=== PATIENT | female | born 1995 | race Caucasian/White ===

== ENCOUNTER 2017-02-22 21:05 | Outpatient (CLI) | payer MEDICAID ==
[~2017-02-22] VITALS: Ht 170.2 cm; Wt 71.0 kg
== END 2017-02-22 22:30 | disposition home or self-care (01) ==
LOC: LDOP 21:05
PROVIDERS: ATTEND Obstetrics & Gynecology
DX: O26.893 Other specified pregnancy related conditions, third trimester (principal); R10.9 Unspecified abdominal pain; Z3A.39 39 weeks gestation of pregnancy
CPT/HCPCS: 59025; 99211; G0463

== ENCOUNTER 2017-02-27 02:26 | Inpatient (IN) | payer MEDICAID ==
[~2017-02-27] VITALS: Ht 170.2 cm; Wt 73.0 kg
[2017-02-27] MEDS ORDERED: NEWBORN KIT ONE (02:52)
[2017-02-27] MEDS ORDERED: OXYTOCIN 30U/ 0.9% NaCL 500ML 500 ML ONE ×2 (02:52→09:54)
[2017-02-27] MEDS ORDERED: OXYTOCIN 30U/ 0.9% NaCL 500ML 500 ML IV PRN (02:55)
[2017-02-27] MEDS ORDERED: OXYTOCIN 30U/ 0.9% NaCL 500ML 500 ML IV ONE (02:55)
[2017-02-27] MEDS ORDERED: D5%-LACTATED RINGERS 1,000 ML IV SCH (02:55)
[2017-02-27 03:00] VITALS: BP 99/61
[2017-02-27] MEDS ORDERED: FENTANYL PF 100 MCG/2ML IV PRN (03:00)
[2017-02-27] MEDS ORDERED: METOCLOPRAMIDE 5 MG/ML, 2ML IVPush PRN (03:00)
[2017-02-27] MEDS ORDERED: TERBUTALINE 1 MG/ML, 1ML SQ PRN (03:00)
[2017-02-27] MEDS ORDERED: FENTANYL PF 100 MCG/2ML IVPush PRN (03:00)
[2017-02-27] MEDS ORDERED: SODIUM CITRATE/CITRIC ACID 30 ML UDC PO PRN (03:00)
[2017-02-27] MEDS ORDERED: ONDANSETRON 2MG/ML, 2ML IVPush PRN (03:00)
[2017-02-27 03:24] LABS: HEMOGLOBIN 13.2 g/dL (11.7-16.4)
[2017-02-27] MEDS ORDERED: FENTANYL PF 100 MCG/2ML ONE (03:26)
[2017-02-27] MEDS: LACTATED RINGERS 1,000 ML IV SCH ×2 (03:30→04:32)
[2017-02-27] MEDS ORDERED: FENTANYL/BUPIV./NS/PF 250 ML EPIDCONT ONE (04:02)
[2017-02-27] MEDS ORDERED: METHYLERGONOVINE 0.2 MG/ML IM PRN (08:30)
[2017-02-27] MEDS ORDERED: RHOGAM FROM BLOOD BANK 1 NOTE EA IM/IV ONE (08:30)
[2017-02-27] MEDS ORDERED: ONDANSETRON 2MG/ML, 2ML IV PRN (08:30)
[2017-02-27] MEDS ORDERED: OXYcodone/APAP 5/325MG TABLET PO PRN (08:30)
[2017-02-27] MEDS ORDERED: MISOPROSTOL 200 MCG TABLET PR PRN (08:30)
[2017-02-27] MEDS ORDERED: MEASLES,MUMPS&RUBELLA VACC/PF 0.5 ML SQ-VACC PRN (08:30)
[2017-02-27] MEDS ORDERED: ACETAMINOPHEN 325 MG TABLET PO PRN (08:30)
[2017-02-27] MEDS ORDERED: DIPH,PERTUSS(ACELL),TET VAC/PF NC IM-VACC PRN (08:30)
[2017-02-27] MEDS ORDERED: BISACODYL 10 MG SUPP PR PRN (08:30)
[2017-02-27] MEDS ORDERED: CARBOPROST TROMETHAMINE 250 MCG/ML, 1ML IM PRN (08:30)
[2017-02-27] MEDS: PRENATAL VIT/IRON/FA 1 EACH TABLET PO SCH (09:00)
[2017-02-27] MEDS: OXYTOCIN 30U/ 0.9% NaCL 500ML 500 ML IV SCH ×2 (09:45→18:16)
[2017-02-27 10:00] VITALS: BP 106/67
[2017-02-27] MEDS: IBUPROFEN 600 MG TABLET PO PRN ×2 (11:31→21:08)
[2017-02-27] MEDS: OXYcodone/APAP 5/325MG TABLET PO PRN ×2 (12:26→22:42)
[2017-02-27 16:15] VITALS: BP 103/63
[2017-02-27 21:30] VITALS: BP 113/74
[2017-02-28 01:30] VITALS: BP 108/68
[2017-02-28] MEDS: OXYTOCIN 30U/ 0.9% NaCL 500ML 500 ML IV SCH ×2 (04:16→14:16)
[2017-02-28 05:25] VITALS: BP 101/61
[2017-02-28] MEDS: IBUPROFEN 600 MG TABLET PO PRN ×3 (05:25→21:11)
[2017-02-28 07:20] VITALS: BP 103/68
[2017-02-28] MEDS: PRENATAL VIT/IRON/FA 1 EACH TABLET PO SCH (07:48)
[2017-02-28] MEDS: DOCUSATE 100 MG CAPSULE PO PRN ×2 (07:48→19:17)
[2017-02-28] MEDS: OXYcodone/APAP 5/325MG TABLET PO PRN ×3 (09:50→19:17)
[2017-02-28] MEDS ORDERED: OXYC-302 PO (09:57)
[2017-02-28 20:00] VITALS: BP 102/49
[2017-03-01] MEDS: OXYcodone/APAP 5/325MG TABLET PO PRN ×3 (00:10→12:43)
[2017-03-01] MEDS: OXYTOCIN 30U/ 0.9% NaCL 500ML 500 ML IV SCH (00:16)
[2017-03-01] MEDS: IBUPROFEN 600 MG TABLET PO PRN ×2 (04:41→12:43)
[2017-03-01 08:00] VITALS: BP 97/58
[2017-03-01] MEDS: DOCUSATE 100 MG CAPSULE PO PRN (08:10)
[2017-03-01] MEDS: PRENATAL VIT/IRON/FA 1 EACH TABLET PO SCH (08:10)
== END 2017-03-01 16:45 | disposition home or self-care (01) | DRG 775 ==
LOC: LDOP 02:26 → LDIP 02:56 → 2NW 10:01
PROVIDERS: ADMIT Obstetrics & Gynecology; ATTEND Obstetrics & Gynecology
PROC: 10E0XZZ Delivery of Products of Conception, External Approach (ICD-10-PCS; principal; 2017-02-27)
PROC: 3E0S3CZ (ICD-10-PCS; 2017-02-27)
PROC: 00HU33Z Insertion of Infusion Device into Spinal Canal, Percutaneous Approach (ICD-10-PCS; 2017-02-27)
PROC: 30233S1 Transfusion of Nonautologous Globulin into Peripheral Vein, Percutaneous Approach (ICD-10-PCS; 2017-02-28)
DX: O80 Encounter for full-term uncomplicated delivery (principal); Z37.0 Single live birth; Z3A.40 40 weeks gestation of pregnancy; Z23 Encounter for immunization
CPT/HCPCS: 36415; 85025; 85461; 86850; 86900; J2790; J3010; J2590; J7120

== ENCOUNTER 2019-03-11 00:21 | Emergency (ER) | payer BC, MEDICAID ==
[~2019-03-11] VITALS: Ht 170.2 cm; Wt 75.0 kg
[~2019-03-11 00:21] MED LIST: OXYC-302 PO
--- NOTE | 2019-03-11 00:55 | NUR ---
PT TO US.
[2019-03-11 01:03] LABS: BASOPHILS # (AUTO) 0.09 x10^3/uL (0-0.1); BASOPHILS % (AUTO) 1 % (0-1); EOSINOPHILS # (AUTO) 0.23 x10^3/uL (0-0.4); EOSINOPHILS % (AUTO) 2 % (1-7); LYMPHOCYTES # (AUTO) 2.11 x10^3/uL (1-3.4); LYMPHOCYTES % (AUTO) 18 % (22-44); MD NO; MEAN CORPUSCULAR HEMOGLOBIN 33.4 pg (27.0-34.8); MEAN CORPUSCULAR HGB CONC 34.8 g/dL (32.4-35.8); MEAN CORPUSCULAR VOLUME 95.9 fL (80-100); MEAN PLATELET VOLUME 7.5 fL (7.4-10.4); MONOCYTES # (AUTO) 0.74 x10^3/uL (0.2-0.8); MONOCYTES % (AUTO) 6 % (2-9); NEUTROPHILS % (AUTO) 74 % (42-75); PLATELET COUNT 220 x10^3/uL (130-400); RED BLOOD COUNT 4.23 x10^6/uL (3.82-5.3); RED CELL DISTRIBUTION WIDTH 12.4 % (9.6-15.2)
[2019-03-11 01:11] LABS: ALBUMIN 4.2 g/dL (3.4-5.0); ANION GAP 6 mmol/L (5-15); CALCIUM 8.1 mg/dL (8.5-10.1); CHLORIDE 110 mmol/L (98-107); CREATININE 0.74 mg/dL (0.55-1.02)
--- NOTE | 2019-03-11 01:12 | NUR ---
LUNCH RN: Pt back to room from imaging.
[2019-03-11 01:15] VITALS: BP 112/61
[2019-03-11 01:19] LABS: CULTURE INDICATED? NO; MICROSCOPIC NOT IND
--- NOTE | 2019-03-11 01:44 | NUR ---
Patient/Caregiver given discharge instructions and they have confirmed that they understand the instructions. Patient ambulatory with steady gait.
== END 2019-03-11 01:45 | disposition home or self-care (01) ==
LOC: ED 01:28
DX: R10.31 Right lower quadrant pain (principal)
CPT/HCPCS: 36415; 76830; 80048; 81003; 82040; 84703; 85025; 99284

== ENCOUNTER 2020-09-10 20:34 | Inpatient (IN) | payer BC ==
[~2020-09-10] VITALS: Ht 170.2 cm; Wt 86.3 kg
[2020-09-10] MEDS ORDERED: NEWBORN KIT ONE (22:25)
[2020-09-10] MEDS ORDERED: LIDOCAINE 1%, 20ML ONE (22:25)
[2020-09-10] MEDS ORDERED: MISOPROSTOL 25 MCG TABLET ONE (22:25)
[2020-09-10] MEDS ORDERED: OXYTOCIN 30U/ 0.9% NaCL 500ML 500 ML ONE (22:26)
[2020-09-10] MEDS ORDERED: MISOPROSTOL 200 MCG TABLET ONE (22:26)
[2020-09-10] MEDS ORDERED: TERBUTALINE 1 MG/ML, 1ML SQ PRN (22:30)
[2020-09-10] MEDS ORDERED: D5%-LACTATED RINGERS 1,000 ML IV SCH (22:30)
[2020-09-10] MEDS ORDERED: LACTATED RINGERS 1,000 ML IV SCH (22:30)
[2020-09-10] MEDS ORDERED: FENTANYL PF 100 MCG/2ML IVPush PRN (22:30)
[2020-09-10] MEDS ORDERED: TERBUTALINE 1 MG/ML, 1ML IVPush PRN (22:30)
[2020-09-10] MEDS ORDERED: FENTANYL PF 100 MCG/2ML IV PRN (22:30)
[2020-09-10] MEDS ORDERED: ONDANSETRON 2MG/ML, 2ML IVPush PRN (22:30)
[2020-09-10] MEDS ORDERED: MISOPROSTOL 25 MCG TABLET VG PRN (22:30)
[2020-09-10] MEDS ORDERED: CALCIUM CARBONATE 500 MG TAB.CHEW PO PRN (22:30)
[2020-09-10 22:47] LABS: BASOPHILS % (AUTO) 1 % (0-1); EOSINOPHILS % (AUTO) 1 % (1-7); LYMPHOCYTES % (AUTO) 20 % (22-44); MEAN CORPUSCULAR HEMOGLOBIN 30.8 pg (27.0-34.8); MEAN CORPUSCULAR HGB CONC 33.1 g/dL (32.4-35.8); MEAN PLATELET VOLUME 7.4 fL (7.4-10.4); MONOCYTES % (AUTO) 8 % (2-9); NEUTROPHILS % (AUTO) 70 % (42-75); PLATELET COUNT 224 x10^3/uL (130-400); RED BLOOD COUNT 3.81 x10^6/uL (3.82-5.3); RED CELL DISTRIBUTION WIDTH 13.2 % (9.6-15.2)
[2020-09-10 22:53] LABS: MD NO
[2020-09-10] MEDS: OXYTOCIN 30U/ 0.9% NaCL 500ML 500 ML IV PRN (23:10)
[2020-09-10 23:38] VITALS: BP 110/77
[2020-09-11] MEDS ORDERED: BUPIVACAINE 0.25% ONE (02:36)
[2020-09-11] MEDS ORDERED: FENTANYL/BUPIV./NS/PF 250 ML EPIDCONT ONE (02:36)
[2020-09-11] MEDS ORDERED: EPHEDRINE 50 MG/ML, 1ML IVPush PRN (03:00)
[2020-09-11] MEDS ORDERED: FENTANYL/BUPIV./NS/PF 250 ML EPIDCONT SCH (03:00)
[2020-09-11] MEDS ORDERED: NALOXONE 0.4 MG/ML, 1ML IVPush PRN (03:00)
[2020-09-11] MEDS ORDERED: LACTATED RINGERS 1,000 ML IVBOLUS PRN (03:00)
[2020-09-11] MEDS: LACTATED RINGERS 1,000 ML IV SCH ×3 (03:00→19:00)
[2020-09-11] MEDS: OXYTOCIN 30U/ 0.9% NaCL 500ML 500 ML IV PRN (05:09)
[2020-09-11] MEDS ORDERED: METHYLERGONOVINE 0.2 MG/ML IM PRN (05:30)
[2020-09-11] MEDS ORDERED: OXYcodone/APAP 5/325MG TABLET PO PRN (05:30)
[2020-09-11] MEDS ORDERED: MISOPROSTOL 200 MCG TABLET PR PRN (05:30)
[2020-09-11] MEDS ORDERED: SIMETHICONE 80 MG CHEW TAB PO PRN (05:30)
[2020-09-11] MEDS ORDERED: DOCUSATE 100 MG CAPSULE PO PRN (05:30)
[2020-09-11] MEDS ORDERED: OXYTOCIN 30U/ 0.9% NaCL 500ML 500 ML ONE (05:55)
[2020-09-11] MEDS: OXYTOCIN 30U/ 0.9% NaCL 500ML 500 ML IV SCH ×2 (05:59→15:30)
[2020-09-11 07:30] VITALS: BP 119/85
[2020-09-11] MEDS: PRENATAL VIT/IRON/FA 1 EACH TABLET PO SCH (09:19)
[2020-09-11] MEDS: IBUPROFEN 800 MG TABLET PO PRN ×2 (10:35→22:00)
[2020-09-11 12:05] VITALS: BP 113/70
[2020-09-11 13:40] LABS: BASOPHILS % (AUTO) 1 % (0-1); EOSINOPHILS % (AUTO) 0 % (1-7); LYMPHOCYTES % (AUTO) 15 % (22-44); MEAN CORPUSCULAR HEMOGLOBIN 30.9 pg (27.0-34.8); MEAN CORPUSCULAR HGB CONC 33.2 g/dL (32.4-35.8); MEAN PLATELET VOLUME 7.6 fL (7.4-10.4); MONOCYTES % (AUTO) 6 % (2-9); NEUTROPHILS % (AUTO) 77 % (42-75); PLATELET COUNT 207 x10^3/uL (130-400); RED BLOOD COUNT 3.75 x10^6/uL (3.82-5.3); RED CELL DISTRIBUTION WIDTH 13.3 % (9.6-15.2)
[2020-09-11 13:56] LABS: MD SCAN
[2020-09-11 16:05] VITALS: BP 101/68
[2020-09-11] MEDS: OXYcodone/APAP 5/325MG TABLET PO PRN ×2 (17:01→22:00)
[2020-09-11 20:00] VITALS: BP 105/70
[2020-09-12] VITALS: BP 108/71
[2020-09-12] MEDS: OXYTOCIN 30U/ 0.9% NaCL 500ML 500 ML IV SCH (01:30)
[2020-09-12 04:00] VITALS: BP 108/73
[2020-09-12] MEDS: OXYcodone/APAP 5/325MG TABLET PO PRN ×3 (04:33→11:24)
[2020-09-12 07:05] VITALS: BP 103/64
[2020-09-12] MEDS: IBUPROFEN 800 MG TABLET PO PRN (07:16)
[2020-09-12] MEDS: PRENATAL VIT/IRON/FA 1 EACH TABLET PO SCH (07:16)
== END 2020-09-12 11:35 | disposition home or self-care (01) | DRG 807 ==
LOC: LDIP 21:49 → 2NW 09-11 07:29
PROVIDERS: ADMIT Obstetrics & Gynecology; ATTEND Obstetrics & Gynecology
PROC: 10E0XZZ Delivery of Products of Conception, External Approach (ICD-10-PCS; principal; 2020-09-11)
PROC: 3E0234Z Introduction of Serum, Toxoid and Vaccine into Muscle, Percutaneous Approach (ICD-10-PCS; 2020-09-11)
DX: O62.9 Abnormality of forces of labor, unspecified (principal); Z37.0 Single live birth; Z3A.39 39 weeks gestation of pregnancy; Z20.828 Contact with and (suspected) exposure to other viral communicable diseases
CPT/HCPCS: 36415; 85025; 85461; 86592; 86850; 86900; 87635; G0378; J2790; J2590; J3010; J7120